=== PATIENT | female | born 2005 | race Two or more races ===

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

== ENCOUNTER 2023-06-11 15:12 | Emergency (ER) | payer MEDICAID ==
[~2023-06-11] VITALS: Ht 160 cm; Wt 47.5 kg
[2023-06-11 16:05] LABS: Basophils # (auto) 0.1 10 ^3/uL (0-0.2); Basophils % (auto) 0.7 % (0.0-2.0); Eosinophils # (auto) 0.3 10 ^3/uL (0-0.8); Eosinophils % (auto) 2.5 % (0.0-7.0); Hematocrit 40.3 % (36.0-46.0); Hemoglobin 13.4 g/dL (12.2-16.2); Lymphocytes # (auto) 2.6 10 ^3/uL (0.4-5.4); Lymphocytes % (auto) 25.1 % (10.0-50.0); Mean Corpuscular Hemoglobin 28.8 pg (28.0-32.0); Mean Corpuscular Hgb Conc. 33.3 g/dL (32.0-36.0); Mean Corpuscular Volume 86.7 fL (80.0-100.0); Monocytes # (auto) 1.2 10 ^3/uL (0-1.3); Monocytes % (auto) 11.5 % (0.0-12.0); Neutrophils # (auto) 6.3 10 ^3/uL (1.6-8.6); Neutrophils % (auto) 60.2 % (37.0-80.0); Red Blood Cells 4.64 10^6/uL (4.0-5.20); Red Cell Distribution Width 13.1 % (11.8-14.3); White Blood Cell 10.4 10^3/uL (4.4-10.8)
[2023-06-11 16:33] LABS: Urine Bacteria MOD /hpf (None Seen); Urine Blood Negative /uL (Negative); Urine Clarity HAZY (Clear); Urine Color Yellow (Yellow); Urine Mucus MODERATE (None Seen); Urine Protein, UAD TRACE (Negative); Urine Urobilinogen Normal (Negative); Urine WBC 1 /hpf (0 - 5)
[2023-06-11 16:43] LABS: Alanine Aminotransferase 10 U/L (7-40); Albumin 4.5 g/dL (3.2-4.8); Alkaline Phosphatase 84 U/L (46-116); Anion Gap 7.6 (5-15); Aspartate Aminotransferase 10 U/L (13-40); BUN/Creatinine Ratio 8.8 (10.0-20.0); Bilirubin, Total 0.4 mg/dL (0.2-1.0); Blood Urea Nitrogen 6 mg/dL (9-23); Calcium 9.3 mg/dL (8.7-10.4); Carbon Dioxide 24.4 mmol/L (20-30); Chloride 109 mmol/L (98-107); Glucose 79 mg/dL (74-106); Potassium 3.8 mmol/L (3.5-5.1); Sodium 141 mmol/L (136-145); Total Protein 7.4 g/dL (5.7-8.2)
[2023-06-11 17:33] LABS: Lipase 43 U/L (12-53)
[2023-06-11 20:00] VITALS: BP 111/77; PULSE 74; RESP 19; TEMP 98; O2SAT 97
[2023-06-11] MEDS ORDERED: HYDR-4902 PO (20:42)
[2023-06-11] MEDS ORDERED: NITR-87 PO (20:42)
[2023-06-11] MEDS ORDERED: ZOFR4T PO (20:42)
[2023-06-11] MEDS ORDERED: HYDROcodone-ACET 5/325MG TAB PO ONE (20:45)
[2023-06-11] MEDS ORDERED: ONDANSETRON ODT 4 MG TAB PO ONE (20:45)
== END 2023-06-11 21:56 | disposition home or self-care (01) ==
LOC: ER 15:12
DX: N39.0 Urinary tract infection, site not specified (principal); R10.2 Pelvic and perineal pain; R11.2 Nausea with vomiting, unspecified
CPT/HCPCS: 36415; 74176; 80053; 81001; 83690; 84702; 85025

== ENCOUNTER 2024-08-21 09:15 | Inpatient (IN) | payer MEDICAID ==
[~2024-08-21] VITALS: Ht 160 cm; Wt 47.6 kg
[~2024-08-21 09:15] MED LIST: HYDR-4902 PO; NITR-87 PO; ZOFR4T PO
--- NOTE | 2024-08-21 09:32 | ED.PDOC ---
GI ASSESSMENT HPI Comments 19y F who presents to the ED for chief complaint of abdominal pain. Pt states she has been having lower pelvic abdominal pain for the past 2 days. Pt states the pain is sharp in nature, constant, rating the pain 10/10, radiating from the R lower flank, with no associated exacerbating or relieving factors. Pt has associated nausea but denies vomiting, diarrhea, fever, cough, chills, dysuria, hematuria or hematemesis. Pt denies any other symptoms at this time. Chief Complaint: Abdominal Pain Time Seen by MD: 09:31 Primary Care Provider: Kevon Reviewed Notes: Medications, Allergies Allergies: Coded Allergies: Iohexol (Verified Allergy, Severe, 08/21/24) Tachycardia Home Meds Active Scripts Hydrocodone-Acetaminophen (Hydrocodone Bitartrate/AC 5-325 mg) 1 Tab Tab, 1 TAB PO Q6HR, #8 TAB As needed for pain Prov:FLACO HERNANDES PASSENGER LOCOMOTIVE ENGINEER 06/11/23 Ondansetron Odt 4MG Tab (ZOFRAN PO) 4 Mg Tb, 1 TAB PO Q8HR, #20 TAB ODT TAB-DISSOLVE IN MOUTH, THEN SWALLOW as needed for nausea vomiting Prov:FLACO HERNANDES PASSENGER LOCOMOTIVE ENGINEER 06/11/23 Nitrofurantoin Monohydrate Mac (Macrobid) 100 Mg Cap, 1 TAB PO BID for 10 Days, #20 CAP Prov:FLACO HERNANDES PASSENGER LOCOMOTIVE ENGINEER 06/11/23 Information Source: Patient Mode of Arrival: Wheelchair Brought in by: self Timing: Days Duration: Since onset Quality: Sharp Pain Location: Diffuse Associated sign and symptoms: Nausea Past Medical History PAST MEDICAL HISTORY: Denies Surgical History: Denies all surgeries MONEY ROOM TELLER History: Denies all MONEY ROOM TELLER Hx Family History Family History: Reviewed,noncontributory to illness Social History Smoker: Non-Smoker Alcohol: Denies ETOH Use Drugs: Denies Drug Use Lives In: Home Constitutional: denies: chills, diaphoresis, fatigue, fever, malaise, sweats, weakness, others EENTM: denies: blurred vision, double vision, ear bleeding, ear discharge, ear drainage, ear pain, ear ringing, eye pain, eye redness, hearing loss, mouth pain, mouth swelling, nasal discharge, nose bleeding, nose congestion, nose pain, photophobia, tearing, throat pain, throat swelling, voice changes, others Respiratory: denies: cough, hemoptysis, orthopnea, SOB at rest, shortness of breath, SOB with excertion, stridor, wheezing, others Cardiovascular: denies: chest pain, dizzy spells, diaphoresis, Dyspnea on exer tion, edema, irregular heart beat, left arm pain, lightheadedness, palpitations, PND, syncope, others Gastrointestinal: reports: abdominal pain, nausea; denies: abdomen distended, blood streaked bowels, constipated, diarrhea, dysphagia, difficulty swallowing, hematemesis, melena, poor appetite, poor fluid intake, rectal bleeding, rectal pain, vomiting, others Genitourinary: denies: abnormal vagina bleeding, burning, dyspareunia, dysuria, flank pain, frequency, hematuria, incontinence, pain, , vagina discharge, urgency, others Neurological: denies: dizziness, fainting, headache, left sided numbness, left sided weakness, numbness, paresthesia, pre-existing deficit, right sided numbness, right sided weakness, seizure, speech problems, tingling, tremors, weakness, others Musculoskeletal: denies: back pain, gout, joint pain, joint swelling, muscle pain, muscle stiffness, neck pain, others Integumetry: denies: bruises, change in color, change in hair/nails, dryness, laceration, lesions, lumps, rash, wounds, others Allergic/Immunocompromised: denies: Difficulty Healing, Frequent Infections, Hives, Itching, others Hematologic/Lymphatic: denies: anemia, blood clots, easy bleeding, easy bruising, swollen glands, others Endocrine: denies: excessive hunger, excessive sweating, excessive thirst, excessive urination, flushing, intolerance to cold, intolerance to heat, unexplained weight gain, unexplained weight loss, others Psychiatric: denies: anxiety, bipolar disorder, depression, hopeless, panic disorder, schizophrenia, sleepless, suicidal, others All Other Systems: Reviewed and Negative Physical Exam General Appearance: Moderate Distress HEENT: Normal ENT Inspection, Pharynx Normal, TMs Normal Neck: Full Range of Motion, Non-Tender, Normal, Normal Inspection Respiratory: Chest Non-Tender, Lungs Clear, No Accessory Muscle Use, No Respiratory Distress, Normal Breath Sounds Cardiovascular: Tachycardia Breast Exam: Deferred Gastrointestinal: Suprapubic Genitalia: Deferred Pelvic: Deferred Rectal: Deferred Extremities: No calf tenderness, Normal capillary refill, Normal inspection, Normal range of motion, Non-tender, No pedal edema Musculoskeletal : Apperance: Normal Neurologic: Alert, alodize machine operator II-XII nml as Tested, No Motor Deficits, Normal Affect, Normal Mood, No Sensory Deficits Cerebellar Function: NOT DONE Reflexes: NOT DONE Skin: Dry, Normal Color, Warm Peripheral Pulses: 3+ Radial (R), 3+ Radial (L) Lymphatic: No Adenopathy Was a procedure done? Was a procedure done?: No GI differential Dx Differential Diagnosis: Cholangitis, Cholecystitis, Constipation, Diverticular disease, Esophagitis, Gastritis/PUD, Gastroenteritis, Pancreatitis, UTI, Food Poisoning, Bacterial, Viral, Kidney Stone X-Ray, Labs, Meds, VS Vital Signs Date Time Temp Pulse Resp B/P (MAP) Pulse Ox O2 Delivery O2 Flow Rate FiO2 08/21/24 12:00 100 19 92/49 (63) 96 08/21/24 11:03 99 19 97 Room Air* 0 21 08/21/24 10:00 99.2 99 19 93/55 (68) 97 99.2 08/21/24 09:17 98.7 146 18 145/87 (106) 97 Lab Test 08/21/24 09:33 Range/Units White Blood Count 15.0 H 4.4-10.8 10^3/uL Red Blood Count 4.82 4.0-5.20 10^6/uL Hemoglobin 14.3 12.2-16.2 g/dL Hematocrit 42.4 36.0-46.0 % Mean Corpuscular Volume 88.1 80.0-100.0 fL Mean Corpuscular Hemoglobin 29.7 28.0-32.0 pg Mean Corpuscular Hemoglobin Concent 33.7 32.0-36.0 g/dL Red Cell Distribution Width 12.2 11.8-14.3 % Platelet Count 371 140-450 10^3/uL Mean Platelet Volume 6.7 L 6.9-10.8 fL Neutrophils (%) (Auto) 76.1 37.0-80.0 % Lymphocytes (%) (Auto) 14.3 10.0-50.0 % Monocytes (%) (Auto) 9.0 0.0-12.0 % Eosinophils (%) (Auto) 0.2 0.0-7.0 % Basophils (%) (Auto) 0.4 0.0-2.0 % Neutrophils # (Auto) 11.4 H 1.6-8.6 10 ^3/uL Lymphocytes # (Auto) 2.1 0.4-5.4 10 ^3/uL Monocytes # (Auto) 1.4 H 0-1.3 10 ^3/uL Eosinophils # (Auto) 0 0-0.8 10 ^3/uL Basophils # (Auto) 0.1 0-0.2 10 ^3/uL Nucleated Red Blood Cells 0.1 % Sodium Level 137 136-145 mmol/L Potassium Level 3.6 3.5-5.1 mmol/L Chloride Level 103 98-107 mmol/L Carbon Dioxide Level 26 20-31 mmol/L Anion Gap 8 5-15 Blood Urea Nitrogen 8 L 9-23 mg/dL Creatinine 0.72 0.550-1.02 mg/dL Glomerular Filtration Rate Calc 122 >90 mL/min BUN/Creatinine Ratio 11.1 10.0-20.0 Serum Glucose 87 74-106 mg/dL Calcium Level 9.8 8.7-10.4 mg/dL Current Medications Medications (Trade) Dose Ordered Sig/Emilio Route Start Time Stop Time Status Last Admin Ondansetron HCl (Zofran) 4 mg ONCE ONCE IV 08/21/24 09:45 08/21/24 09:46 DC 08/21/24 10:27 Sodium Chloride 1,000 ml @ 1,000 mls/hr Q1H ONCE IVB 08/21/24 09:45 08/21/24 10:45 DC 08/21/24 10:29 Ketorolac Tromethamine (Toradol Injection) 30 mg ONCE ONCE IV 08/21/24 09:45 08/21/24 09:46 DC 08/21/24 10:27 PROCEDURE(s): ABPL - CT AB PEL WO CON-NO ORAL OR IV IMPRESSION: 1. Suspected appendix appears dilated. If there is concern for appendicitis, recommend repeat CT of the abdomen and pelvis with contrast to better evaluate this area. No hydronephrosis or nephrolithiasis. Patient alert. Complaining of suprapubic pain. Vitals stable. Answering all questions. Possible kidney stone. Establish intravenous access. Was given fluids. Was given pain medication. Tachycardia. Will need echocardiogram. Possible mitral valve disease. Reviewed her history. Explained to the patient treatment plan. Time of 1ST Reevaluation: 10:00 Reevaluation 1ST: Unchanged Patient Education/Counseling: Diagnosis, Treatment Family Education/Counseling: No Family Present Departure 1 Departure Time of Disposition: 10:51 Impression: Primary Impression: Abdominal pain of unknown etiology Additional Impression: Tachycardia Disposition: ADMITTED INPATIENT Admit to: Med Surg Condition: Guarded Critical Care Note Critical Care Time?: Yes (45 min-critical care time only) Stability Stability form required: No Heart Score Heart Score: Heart Score Response (Comments) Value History N/A 0 EKG N/A 0 Age N/A 0 Risk Factors N/A 0 Troponin N/A 0 Total 0 I personally scribed for MARTÍN MAYS MD ([email or web address]) on 08/21/24 at 09:32. Electronically submitted by Patt Rollins ([email or web address]). I personally scribed for MARTÍN MAYS MD ([email or web address]) on 08/21/24 at 14:30. Electronically submitted by Patt Rollins ([email or web address]). MARTÍN MAYS MD Aug 21, 2024 09:32
[2024-08-21 10:00] LABS: Basophils # (auto) 0.1 10 ^3/uL (0-0.2); Basophils % (auto) 0.4 % (0.0-2.0); Eosinophils # (auto) 0 10 ^3/uL (0-0.8); Eosinophils % (auto) 0.2 % (0.0-7.0); Hematocrit 42.4 % (36.0-46.0); Hemoglobin 14.3 g/dL (12.2-16.2); Lymphocytes # (auto) 2.1 10 ^3/uL (0.4-5.4); Lymphocytes % (auto) 14.3 % (10.0-50.0); Mean Corpuscular Hemoglobin 29.7 pg (28.0-32.0); Mean Corpuscular Hgb Conc. 33.7 g/dL (32.0-36.0); Mean Corpuscular Volume 88.1 fL (80.0-100.0); Monocytes # (auto) 1.4 10 ^3/uL (0-1.3); Neutrophils # (auto) 11.4 10 ^3/uL (1.6-8.6); Neutrophils % (auto) 76.1 % (37.0-80.0); Nucleated Red Blood Cells % 0.1 %; Platelet Count (auto) 371 10^3/uL (140-450); Red Blood Cells 4.82 10^6/uL (4.0-5.20); Red Cell Distribution Width 12.2 % (11.8-14.3)
[2024-08-21 10:12] LABS: Chloride 103 mmol/L (98-107); Potassium 3.6 mmol/L (3.5-5.1); Sodium 137 mmol/L (136-145)
[2024-08-21 10:13] LABS: Anion Gap 8 (5-15); Calcium 9.8 mg/dL (8.7-10.4); Carbon Dioxide 26 mmol/L (20-31)
[2024-08-21 10:18] LABS: BUN/Creatinine Ratio 11.1 (10.0-20.0); Blood Urea Nitrogen 8 mg/dL (9-23); Glucose 87 mg/dL (74-106)
[2024-08-21] MEDS: KETOROLAC TROMETH 30 MG/ML 1ML VIAL IV ONE (10:27)
[2024-08-21] MEDS: ONDANSETRON HCL 4 MG/2 ML VIAL IV ONE (10:27)
[2024-08-21] MEDS: SODIUM CHLORIDE 0.9% 1,000 ML IVB ONE (10:29)
[2024-08-21 11:03] VITALS: PULSE 99; RESP 19; O2SAT 97
--- NOTE | 2024-08-21 11:35 | DVH ---
Exam: CT CT AB PEL WO CON-NO ORAL OR IV History: stone Comparison Study: CT CT AB PEL WO CON-NO ORAL OR IV on DOS: 06/11/23 Technique: Multidetector spiral CT of the abdomen and pelvis was performed from lung bases to pubic symphysis. Imaging was performed without IV contrast. Axial, coronal and sagittal multiplanar reform ats were obtained from the axial data set by the technologist. Radiation dose : Abdomen/Pelvis: CTDIvol 5 mGy, DLP 257 mGy*cm. Findings: Evaluation of solid organs is limited due to lack of intravenous contrast use. Lung Bases: No acute or significant lung base finding. Normal heart size. No pleural or pericardial effusion. Liver: The liver is normal in size. No focal lesions. Gallbladder and biliary Tree: Unremarkable Spleen: Unremarkable Pancreas: The pancreas is grossly normal in appearance. Adrenal Glands: Unremarkable Kidneys: Kidneys are grossly normal without calculi or hydronephrosis. Bladder: Grossly unremarkable for degree of distention. Bowel: The stomach is grossly normal in appearance. Small bowel and colon are normal in caliber and d istribution. Suspected appendix appears dilated measuring up to 12 mm Ascites: Trace free fluid in the pelvis. Lymphadenopathy: No mesenteric, retroperitoneal or periportal lymphadenopathy. Abdominal wall and Mesentery: Unremarkable. Vasculature: The visualized abdominal aorta is normal in size and caliber. Evaluation of abdominal a nd pelvic vessels is limited due to lack of intravenous contrast. Pelvic Organs: Unremarkable Musculoskeletal: No aggressive focal bony lesions, acute fractures or dislocation. IMPRESSION: 1. Suspected appendix appears dilated. If there is concern for appendicitis, recommend repeat CT of t he abdomen and pelvis with contrast to better evaluate this area. No hydronephrosis or nephrolithiasi s. Radiation optimization: All CT scans at this facility use at least one of these dose optimization augustin hniques: Automated exposure control mA and/or kV adjustment per patient size (includes targeted exams where dose is matched to clinical indication) or iterative reconstruction. HS:Y
[2024-08-21] MEDS ORDERED: MORPHINE SULFATE INJ 2 MG/ml SYRG IV PRN (13:15)
[2024-08-21] MEDS: IOHEXOL 300 MG/ML 100ML BOTTLE IJ ONE (13:24)
--- NOTE | 2024-08-21 13:53 | DVHHP2 ---
History of Present Illness Reason for Visit: Abdominal pain History of Present Illness 19-year-old female presented to the ED with chief complaint of abdominal pain. Patient states she was having lower abdominal pain for the last 2 days. Per the patient pain is sharp, constant and 10/10 radiating from the right lower flank, patient also states she had nausea but denies vomiting. CT abdomen and pelvis without contrast shows possible dilation of the appendix, CT abdomen/pelvis with contrast ordered and pending. Antibiotics started. We will place surgical consult to eval.Patient denies chest pain, headache, dizziness, diaphoresis, shortness of breath, fever, or chills endorsed by the patient. Patient was admitted for further evaluation medical management. Past Medical History Denies Past Surgical History Denies Family History Reviewed noncontributory to the management of this case Smoke: No ALCOHOL: none Drugs: None Lives: with Family Review of Systems Constitutional: No: Fever, Chills, Sweats, Weakness, Malaise, Other Eyes: No: Pain, Vision change, Conjunctivae inflammation, Eyelid inflammation, Other, Redness ENT: No: Ear pain, Ear discharge, Nose pain, Nose discharge, Nose congestion, Mouth pain, Mouth swelling, Throat pain, Throat swelling, Other Respiratory: No: Cough, Dry, Shortness of breath, SOB with excertion, Wheezing, Hemoptysis, Pleuritic Pain, Sputum, Wheezing, Other Cardiovascular: No: Chest Pain, Palpitations, Orthopnea, Paroxysmal Noc. Dyspnea, Edema, Lt Headedness, Other Gastrointestinal: Nausea, Abdominal Pain; No: Vomiting, Diarrhea, Constipation, Melena, Hematochezia, Other Genitourinary: No Dysuria, No Frequency, No Incontinence, No Hematuria, No Retention, No Other Musculoskeletal: No: other, neck pain, shoulder pain, arm pain, back pain, hand pain, leg pain, foot pain Skin: No: Rash, Lesions, Jaundice, Bruising, Other Neurological: No: Weakness, Numbness, Incoordination, Change in speech, Co nfusion, Seizures, Other Allergies: Coded Allergies: NO KNOWN ALLERGIES (Unverified , 07/03/19) Medications Current Medications Medications Dose Ordered Sig/Emilio Route Start Time Stop Time Status Last Admin Dose Admin Ondansetron HCl 4 mg Q4HP PRN IV 08/21/24 13:15 Morphine Sulfate 2 mg Q4HPRN PRN IV 08/21/24 13:15 Piperacillin Sod/ Tazobactam Sod 100 ml @ 25 mls/hr Q6HR IV 08/21/24 18:00 UNV Exam Vital Signs Vital Signs Date Time Temp Pulse Resp B/P (MAP) Pulse Ox O2 Delivery O2 Flow Rate FiO2 08/21/24 12:00 100 19 92/49 (63) 96 08/21/24 11:03 Room Air* 0 21 08/21/24 10:00 99.2 99.2 General Appearance: Alert, Oriented X3, Cooperative, No acute distress HEENT: Atraumatic, PERRLA, EOMI, Mucous membr. moist/pink Respiratory: Clear to auscultation, Normal air movement Cardiovascular: Regular rate, Normal S1, Normal S2, No murmurs Abdominal: Normal bowel sounds, Soft, No hepatospenomegaly, No masses, Other (Some deep tenderness to right lower quadrant, no rebound tenderness) Extremities: No clubbing, No cyanosis, No edema, Normal pulses, No tender ness/swelling Skin: No rashes, No breakdown, No significant lesion Neuro: Normal gait, Normal speech, Strength at 5/5 X4 ext, Normal tone, Sensation intact, Cranial nerves 3-12 NL, Reflexes 2+ Psych/Mental Status: Mental status NL, Mood NL (Tachycardic, which patient states is her baseline) Labs/Xrays Labs, imaging and ED notes reviewed Labs Test 08/21/24 09:33 Range/Units White Blood Count 15.0 H 4.4-10.8 10^3/uL Red Blood Count 4.82 4.0-5.20 10^6/uL Hemoglobin 14.3 12.2-16.2 g/dL Hematocrit 42.4 36.0-46.0 % Mean Corpuscular Volume 88.1 80.0-100.0 fL Mean Corpuscular Hemoglobin 29.7 28.0-32.0 pg Mean Corpuscular Hemoglobin Concent 33.7 32.0-36.0 g/dL Red Cell Distribution Width 12.2 11.8-14.3 % Platelet Count 371 140-450 10^3/uL Mean Platelet Volume 6.7 L 6.9-10.8 fL Neutrophils (%) (Auto) 76.1 37.0-80.0 % Lymphocytes (%) (Auto) 14.3 10.0-50.0 % Monocytes (%) (Auto) 9.0 0.0-12.0 % Eosinophils (%) (Auto) 0.2 0.0-7.0 % Basophils (%) (Auto) 0.4 0.0-2.0 % Neutrophils # (Auto) 11.4 H 1.6-8.6 10 ^3/uL Lymphocytes # (Auto) 2.1 0.4-5.4 10 ^3/uL Monocytes # (Auto) 1.4 H 0-1.3 10 ^3/uL Eosinophils # (Auto) 0 0-0.8 10 ^3/uL Basophils # (Auto) 0.1 0-0.2 10 ^3/uL Nucleated Red Blood Cells 0.1 % Sodium Level 137 136-145 mmol/L Potassium Level 3.6 3.5-5.1 mmol/L Chloride Level 103 98-107 mmol/L Carbon Dioxide Level 26 20-31 mmol/L Anion Gap 8 5-15 Blood Urea Nitrogen 8 L 9-23 mg/dL Creatinine 0.72 0.550-1.02 mg/dL Glomerular Filtration Rate Calc 122 >90 mL/min BUN/Creatinine Ratio 11.1 10.0-20.0 Serum Glucose 87 74-106 mg/dL Calcium Level 9.8 8.7-10.4 mg/dL Assessment/Plan Assessment/Plan Acute appendicitis Admit to medical/surgical WBCs and neutrophils elevated Patient is tachycardic patient states she has tachycardia baseline May consider Cardiology consult Consult surgery Zosyn started IV fluids NPO for now until surgical clears FEN/PPX GI prophylaxis in VTE prophylaxis not indicated NPO IV fluids Plan discussed with: Patient My Orders Orders - SHANTELLE EWING Procedure Category Date Status Time Ct Ab Pel With Iv Con CT 08/21/24 Taken Only 13:04 Admit ADMIT 08/21/24 Transmitted 13:07 Code Status CODE 08/21/24 Transmitted 13:07 Vital Signs [facility] 08/21/24 In Process 13:07 Review Orders With [facility] 08/21/24 In Process Adm. 13:07 Up Ad Erinn [facility] 08/21/24 In Process 13:07 Npo (Nothing By DIET 08/21/24 Transmitted Mouth) Diet Lunch Notify Of Changes [facility] 08/21/24 In Process From Base 13:07 Advance Directive [facility] 08/21/24 In Process 13:07 Basic Metabolic Panel LAB 08/22/24 Verified 04:00 Complete Blood Count LAB 08/22/24 Verified 04:00 Patient Condition ORDERS 08/21/24 Transmitted 13:07 Allergies ARACELIS 08/21/24 In Process 13:07 Ondansetron Hcl PHA 08/21/24 In Process (Zofran) 13:15 Morphine Sulfate PHA 08/21/24 In Process Injection 13:15 Piperacillin-Tazob PHA 08/21/24 Logged 3.375gm (Zosyn 3.375g 18:00 Piperacillin-Tazob PHA 08/21/24 In Process 3.375gm (Zosyn 3.375g 13:30 Date of Service: Aug 21, 2024 Billing Provider: SHANTELLE EWING Common Visit Codes: [id number] INP/OBS CARE (HIGH) SHANTELLE EWING Aug 21, 2024 13:53
--- NOTE | 2024-08-21 13:53 | DVH ---
Exam: CT CT AB PEL WITH IV CON ONLY History: Dilated appendix Comparison Study: TECHNIQUE: A digital systems librarian image was obtained. During the uneventful, intravenous administration of c ontrast material, multislice data acquisition was obtained through the abdomen and pelvis. The data s et was subsequently reconstructed into axial images. Images were reviewed on a work station using a c ombination of axial and multiplanar using a variety of window levels and settings. 100 cc of Omnipaqu e 300 contrast was injected intravenously. All CT scans at this medical facility are performed using dose modulation techniques as appropriate t o a performed exam including the following:Automated exposure control was utilized; adjustment of the MA and/or KV according to patient size; and use of iterative reconstruction technique. Radiation Dose Information: CT Dose: CTDI volume is 5.4 mGy. Dose-length product is 270.69 mGy*cm Comparison: CT CT AB PEL WO CON-NO ORAL OR IV on DOS: 08/21/24, CT CT AB PEL WO CON-NO ORAL OR IV on D OS: 06/11/23 FINDINGS: There is redemonstration of a dilated appendix measuring 1.3 cm in diameter. There is hypodense rakesh nts within the appendix. There is no significant periappendiceal fat stranding or fluid collection. T here is no free air. Theliver, gallbladder, pancreas, kidneys, adrenal glands, and spleen appear within normal limits. There is no evidence of abdominal lymphadenopathy. There is no free fluid or free air. The stomach grossly appears unremarkable. The small and large bowel loops demonstrate normal caliber. Air intermixed with stool is seen throughout the colon. The abdominal aorta and IVC appear within normal limits. The bladder appears within normal limits the degree of distention. Pelvic organs is unremarkable. The re is no evidence of a pelvic mass or lymphadenopathy. There is free fluid in the posterior cul-de-s ac, likely physiologic. Lung bases are clear. There is no acute osseous abnormality. IMPRESSION: 1. Dilated appendix measuring 1.3 cm in diameter. There is hypodense contents within the appendix. Th ere is no significant periappendiceal fat stranding or fluid collection. There is no free air. Clinic al correlation is recommended to exclude acute appendicitis. Mucocele in the appendix is not excluded . Surgical consultation is recommended. HS:Y
[2024-08-21] MEDS: diphenhdrAMINE HCL 50 MG/1 ML VL IV ONE (14:07)
[2024-08-21] MEDS: PIPERACILLIN-TAZOB 3.375GM 100 ML IV ONE (14:18)
--- NOTE | 2024-08-21 15:11 | DVHINCON2 ---
Date of service: Aug 21, 2024 Reason for Consultation appendicitis History of Present Illness History Source: Patient, Family, MD Notes Exam Limitations: No limitations HPI 19 year old female presented to the ER for evaluation of abdominal pain. The patient states the pain has been present for the past two days and progressively worse and now pain is sharp 10/10 to her lower abdomen and right lower quadrant associated with nausea. Denies vomiting Home Meds Active Scripts Hydrocodone-Acetaminophen (Hydrocodone Bitartrate/AC 5-325 mg) 1 Tab Tab, 1 TAB PO Q6HR, #8 TAB As needed for pain Prov:FLACO HERNANDES Q [employer] SALES [employer]ANT 06/11/23 Ondansetron Odt 4MG Tab (ZOFRAN PO) 4 Mg Tb, 1 TAB PO Q8HR, #20 TAB ODT TAB-DISSOLVE IN MOUTH, THEN SWALLOW as needed for nausea vomiting Prov:FLACO HERNANDES Q S[employer]IOR SALES CONSULTANT 06/11/23 Nitrofurantoin Monohydrate Mac (Macrobid) 100 Mg Cap, 1 TAB PO BID for 10 Days, #20 CAP Prov:CECILIOJOEMoe Q SENIOR SALES CONSULTANT 06/11/23 Chief Complaint of Abdominal/F: Abdominal pain Onset/Duration of Abd/Flank Pa: 24 hours Quality of Abd/Flank Pain: Sharpness Location of Abdominal Onset: RLQ Timing of Abdominal Pain: Still present Past Medical History Cardiac: No pertinent Hx Pulmonary: No pertinent Hx Central Nervous System: No pertinent Hx GI: No pertinent Hx Hemotology/Oncology: No pertinent Hx Hepatobiliary: No pertinent Hx Psychiatric: No pertinent Hx Musculoskeletal: No pertinent Hx Rheumotologic: No pertinent Hx Infectious Disease: No peritnent Hx ENT: No pertinent Hx Renal/: No pertinent Hx Endocrine: No pertinent Hx Dermatology: No pertinent Hx Past Surgical History: No pertinent Hx Family History: No pertinent Hx Smoker: No Hx (Negative) Alocohol: None Drugs: None Lives with: With family Review of Systems Constitutional: No symptom reported Ears, Nose, & Throat: No symptom reported Eyes: No symptom reported Pulmonary/Respiratory: No symptom reported Cardiovascular: No symptom reported Gastrointestinal: Abdominal Pain Genitourinary: No symptom reported Musculoskeletal: No symptom reported Skin: No symptom reported Psychiatric: No symptom reported Endocrine: No symptom reported Hemotologic/Lymphatic: No symptom reported H&P Exam Vital Signs Vital Signs Date Time Temp Pulse Resp B/P (MAP) Pulse Ox O2 Delivery O2 Flow Rate FiO2 08/21/24 14:00 123 19 100/60 (73) 100 08/21/24 11:03 Room Air* 0 21 08/21/24 10:00 99.2 99.2 General Appeara: Well developed, Well nourished, Normal Appearance Head Exam: Normal inspection Neck Exam: Normal inspection, Non-tender, Normal alignment Eye Exam: bilateral eye Normal inspection Nasal Exam: Normal inspection Mouth: Normal Inspection Pulmonary/Respiratory: Normal inspection, Normal breath sounds Cardiovascular/Chest: Normal inspection Abdominal Exam: Normal bowel sounds Abdominal Pain Onset Location: RLQ, Periumbilical Tendon/ Neuro: Normal sensation, Normal motor function [employer] T[employer] Exam: Normal hearing, Normal speech, PERRL Neuro/Mental St: Alert, Oriented Appearance: Appropriate appearance Eye contact/ Speech: Cooperative, Good eye contact, Normal speech Skin Exam: Normal inspection, Normal color, Warm/dry Labs/Xrays Labs Test 08/21/24 09:33 Range/Units White Blood Count 15.0 H 4.4-10.8 10^3/uL Red Blood Count 4.82 4.0-5.20 10^6/uL Hemoglobin 14.3 12.2-16.2 g/dL Hematocrit 42.4 36.0-46.0 % Mean Corpuscular Volume 88.1 80.0-100.0 fL Mean Corpuscular Hemoglobin 29.7 28.0-32.0 pg Mean Corpuscular Hemoglobin Concent 33.7 32.0-36.0 g/dL Red Cell Distribution Width 12.2 11.8-14.3 % Platelet Count 371 140-450 10^3/uL Mean Platelet Volume 6.7 L 6.9-10.8 fL Neutrophils (%) (Auto) 76.1 37.0-80.0 % Lymphocytes (%) (Auto) 14.3 10.0-50.0 % Monocytes (%) (Auto) 9.0 0.0-12.0 % Eosinophils (%) (Auto) 0.2 0.0-7.0 % Basophils (%) (Auto) 0.4 0.0-2.0 % Neutrophils # (Auto) 11.4 H 1.6-8.6 10 ^3/uL Lymphocytes # (Auto) 2.1 0.4-5.4 10 ^3/uL Monocytes # (Auto) 1.4 H 0-1.3 10 ^3/uL Eosinophils # (Auto) 0 0-0.8 10 ^3/uL Basophils # (Auto) 0.1 0-0.2 10 ^3/uL Nucleated Red Blood Cells 0.1 % Sodium Level 137 136-145 mmol/L Potassium Level 3.6 3.5-5.1 mmol/L Chloride Level 103 98-107 mmol/L Carbon Dioxide Level 26 20-31 mmol/L Anion Gap 8 5-15 Blood Urea Nitrogen 8 L 9-23 mg/dL Creatinine 0.72 0.550-1.02 mg/dL Glomerular Filtration Rate Calc 122 >90 mL/min BUN/Creatinine Ratio 11.1 10.0-20.0 Serum Glucose 87 74-106 mg/dL Calcium Level 9.8 8.7-10.4 mg/dL Assessment/Plan Plan patient states she had a similar episode about one year ago and lasted for a few days and got better. Patient states pain started two days ago and progressively became worse. On exam patient tender to right lower quadrant. review of CT dilated appendix , case discussed with Dr. Angulo and agrees with the following plan Laparoscopic possibly open appendectomy tomorrow morning Plan discussed with: Patient, Other (Dr. Angulo ) Visit Coding Surgery Date of Service if different f: Aug 21, 2024 Billing Provider: RIAN ANGULO MD Surgery Visit Codes: 63975 - INP CONSULT <80 MIN JESUS MANUEL TAFOYA NP Aug 21, 2024 15:11
[2024-08-21] MEDS: D5W/SOD CHL 0.45%/KCL 20MEQ 1,000 ML IV SCH (15:13)
[2024-08-21 16:13] VITALS: BP 107/66; PULSE 91; RESP 20; TEMP 98.1; O2SAT 97
[2024-08-21 17:00] VITALS: BP 96/62; PULSE 92; RESP 17; TEMP 98.5; O2SAT 100
[2024-08-21] MEDS ORDERED: TRAZ1TAB12 PO (17:30)
[2024-08-21] MEDS ORDERED: VENL150C3 PO (17:31)
[2024-08-21 19:16] LABS: INR 1.11 (0.9-1.15); Partial Thromboplastin Time 29.4 SEC (24.5-34.5); Prothrombin Time 11.7 sec (9.3-11.8)
[2024-08-21 20:00] VITALS: PULSE 95; RESP 18; O2SAT 98
[2024-08-21 21:00] VITALS: BP 104/69; PULSE 95; RESP 18; TEMP 98.4; O2SAT 98
[2024-08-21] MEDS: PIPERACILLIN-TAZOB 3.375GM 100 ML IV SCH (21:51)
[2024-08-22] VITALS (8 sets, daily range): BP systolic 93–106; BP diastolic 55–64; PULSE 69–96; RESP 16–20; TEMP 97.8–98.4; O2SAT 96–100
[2024-08-22 06:24] LABS: Basophils # (auto) 0.1 10 ^3/uL (0-0.2); Basophils % (auto) 0.8 % (0.0-2.0); Eosinophils # (auto) 0.1 10 ^3/uL (0-0.8); Eosinophils % (auto) 1.7 % (0.0-7.0); Hematocrit 39.7 % (36.0-46.0); Hemoglobin 13.3 g/dL (12.2-16.2); Lymphocytes # (auto) 2.5 10 ^3/uL (0.4-5.4); Lymphocytes % (auto) 36.3 % (10.0-50.0); Mean Corpuscular Hemoglobin 29.6 pg (28.0-32.0); Mean Corpuscular Hgb Conc. 33.5 g/dL (32.0-36.0); Mean Corpuscular Volume 88.3 fL (80.0-100.0); Monocytes # (auto) 0.7 10 ^3/uL (0-1.3); Monocytes % (auto) 10.8 % (0.0-12.0); Neutrophils # (auto) 3.4 10 ^3/uL (1.6-8.6); Neutrophils % (auto) 50.4 % (37.0-80.0); Platelet Count (auto) 310 10^3/uL (140-450); Red Cell Distribution Width 12.6 % (11.8-14.3); White Blood Cell 6.8 10^3/uL (4.4-10.8)
[2024-08-22 06:32] LABS: Chloride 108 mmol/L (98-107); Potassium 3.6 mmol/L (3.5-5.1); Sodium 140 mmol/L (136-145)
[2024-08-22 06:33] LABS: Anion Gap 7 (5-15); Carbon Dioxide 25 mmol/L (20-31)
[2024-08-22 06:38] LABS: Glucose 89 mg/dL (74-106)
[2024-08-22 06:39] LABS: BUN/Creatinine Ratio 8.7 (10.0-20.0); Blood Urea Nitrogen 6 mg/dL (9-23)
--- NOTE | 2024-08-22 08:55 | DVHPN2 ---
Progress Note - Surgical Date Seen: Aug 22, 2024 Post op day Post op day: 0 Subjective Review of Systems: HEENT:Normal, CVS:Normal, RESPIRATORY:Normal, GI:Abnormal (ABDOMINAL PAIN ), MSK:Normal, NEURO:Normal Objective Vital signs Vital Sign Date Time Temp Pulse Resp B/P (MAP) Pulse Ox O2 Delivery O2 Flow Rate FiO2 08/22/24 07:30 Room Air* 0 21 08/22/24 05:00 98.4 85 16 95/57 (70) 99 98.4 Total Intake and Output 08/21/24 08/21/24 08/22/24 15:00 23:00 07:00 Intake Total 1000 ml 200 ml 800 ml Output Total 0 ml Balance 1000 ml 200 ml 800 ml Medications Current Medications Medications Dose Ordered Sig/Emilio Route Start Time Stop Time Status Last Admin Dose Admin Ondansetron HCl 4 mg Q4HP PRN IV 08/21/24 13:15 Morphine Sulfate 2 mg Q4HPRN PRN IV 08/21/24 13:15 Piperacillin Sod/ Tazobactam Sod 100 ml @ 25 mls/hr Q8HR IV 08/21/24 22:00 08/22/24 05:59 25 MLS/HR Potassium Chloride/Dextrose/ Sod Cl 1,000 ml @ 100 mls/hr Q10H IV 08/21/24 15:00 08/21/24 15:13 100 MLS/HR Laboratory Laboratory Tests 08/22/24 04:54 Test 08/22/24 04:54 Range/Units Serum Glucose 89 74-106 mg/dL Examination: GENERAL:Normal, HEENT:Normal, NECK:Normal, LUNGS:Normal, CVS:Normal, ABDOMEN:Abnormal (Right lower quadrant pain ), MSK:Normal, SKIN:Normal, NEURO:Normal Problem List/Assessment/Plan Assessment and Plan pain right lower quadrant tender to right lower quadrant Laparoscopic possibly open appendectomy Dr. Gonzalez explained all risks and complications in detail to patient all questions answered and patient would like to proceed with operation My Orders My Orders Orders - JESUS MANUEL TAFOYA CYCLE TOURING GUIDE Procedure Category Date Status Time Npo (Nothing By DIET 08/21/24 Transmitted Mouth) Diet Dinner Obtain Consent For: ORDERS 08/21/24 Transmitted 14:57 D5w/Sod Chl 0.45%/Kcl PHA 08/21/24 In Process 20meq 15:00 Plan discussed with Plan discussed with: Patient Visit Coding Surgery Date of Service if different f: Aug 22, 2024 Billing Provider: RIAN GONZALEZ MD Surgery Visit Codes: 86224 - INP CONSULT <80 MIN JESUS MANUEL TAFOYA NP Aug 22, 2024 08:55
--- NOTE | 2024-08-22 09:37 | DVHPN2 ---
Subjective Now complaining of surgical wounds pain Reviewed: Care Plan, H&P, Labs, Medications, Previous Orders, Radiology, Other (Consultation) Changes from previous H/P or p: Changes Objective Vitals Vital Signs Date Time Temp Pulse Resp B/P (MAP) Pulse Ox O2 Delivery O2 Flow Rate FiO2 08/22/24 07:30 Room Air* 0 21 08/22/24 05:00 98.4 85 16 95/57 (70) 99 98.4 Intake/Output Intake and Output 08/22/24 07:00 Intake Total 2000 ml Output Total 0 ml Balance 2000 ml Intake Oral 0 ml IV Total 2000 ml Output Urine Total 0 ml Exam Female nurse was a color television console monitor General Appearance: Alert, Oriented X3, Cooperative, No acute distress, Other (Cachectic) HEENT: Atraumatic Lungs: Clear to auscultation, Normal air movement Cardiovascular: Regular rate, Normal S1, Normal S2, No murmurs Abdomen: Soft, Other (Clean surgical wounds dressing; hoypoactive bowel sounds; mild tenderness) Extremities: No edema Neuro: Normal speech, Cranial nerves 3-12 NL Psych/Mental Status: Mental status NL, Mood NL Medications Current Medications Medications Dose Ordered Sig/Emilio Route Start Time Stop Time Status Last Admin Dose Admin Ondansetron HCl 4 mg Q4HP PRN IV 08/21/24 13:15 Morphine Sulfate 2 mg Q4HPRN PRN IV 08/21/24 13:15 Piperacillin Sod/ Tazobactam Sod 100 ml @ 25 mls/hr Q8HR IV 08/21/24 22:00 08/22/24 05:59 25 MLS/HR Potassium Chloride/Dextrose/ Sod Cl 1,000 ml @ 100 mls/hr Q10H IV 08/21/24 15:00 08/21/24 15:13 100 MLS/HR Laboratory Results Laboratory Tests 08/22/24 04:54 Chemistry Test 08/22/24 04:54 Calcium Level 9.0 mg/dL (8.7-10.4) Coagulation Test 08/21/24 18:18 Prothrombin Time 11.7 sec (9.3-11.8) Prothrombin Time INR 1.11 (0.9-1.15) Activated Partial Thromboplast Time 29.4 SEC (24.5-34.5) Labs and/or images reviewed: Labs reviewed by me, Image(s) reviewed by me Assessment/Plan Assessment/Plan A 19-year-old female patient; with anxiety and depression; who presented to the emergency department abdominal pain. #Abdominal pain due to acute appendicitis #Sepsis due to acute appendicitis #Borderline blood pressure due to sepsis #Leukocytosis due to sepsis #Acute appendicitis status post laparoscopic appendectomy August 22, 2024 Ordered bolus IV fluids Continue regular IV fluids Continue pain management as indicated Continue IV antibiotics Advanced diet as tolerated per surgery recommendations Surgery is following Continue monitoring #Anxiety and depression No suicide ideation/plan Resumed home psychiatric medications #Malnutrition Encouraged the patient to increase oral intake Continue monitoring Care discussed for 20 minutes; full code Late Entry This medical document was created using an electronic medical record system with computerized dictation system. Although this document has been carefully reviewed, there might still be some phonetic and typographical errors. These areas are purely typographical due to imperfections of the software programs, and do not reflect any compromise in the patient's medical care. Plan discussed with: Patient, Other (Nurse) Date of Service: Aug 22, 2024 Billing Provider: CLINTON VARGHESE MD Common Visit Codes: [id number] INP/OBS CARE(HIGH) Secondary Visit Codes: [id number] CARE PLAN 30 MINUTES (20 minutes) CLINTON VARGHESE MD Aug 22, 2024 09:37
[2024-08-22] MEDS ORDERED: fentaNYL CITRATE 100 MCG/2 ML VL ONE (10:19)
[2024-08-22] MEDS ORDERED: MEPERIDINE HCL (25 MG/ML) 1ML VIAL ONE (10:19)
[2024-08-22] MEDS ORDERED: MIDAZOLAM HCL 2MG/2ML 2ml VIAL (1mg/ml) ONE (10:19)
[2024-08-22] MEDS: ceFAZolin 1GM/50ML 100 ML IV ONE (10:32)
[2024-08-22] MEDS: BUPIVACAINE HCL 0.25% P/F 10 ML VIAL ONE (10:40)
[2024-08-22] MEDS: LIDOCAINE 2% JELLY 11ml (GLYDO) ONE (10:44)
[2024-08-22] MEDS ORDERED: LIDOCAINE W/ EPINEPHRINE 1% 20ML VIAL ONE (10:49)
[2024-08-22] MEDS ORDERED: ONDANSETRON HCL 4 MG/2 ML VIAL ONE (11:13)
[2024-08-22] MEDS ORDERED: PROPOFOL 10 MG/ML 20 ML IV ONE (11:13)
[2024-08-22] MEDS ORDERED: DexAMETHasone SOD PHOS 10MG/1ML VIAL INJ ONE (11:13)
[2024-08-22] MEDS ORDERED: SUGAMMADEX 200mg/2ml Vial (100MG/ML) IV ONE (11:26)
[2024-08-22] MEDS: HYDROcodone-ACET 10/325MG TAB PO PRN (14:47)
--- NOTE | 2024-08-22 17:30 | DVHOP ---
DATE OF SURGERY: 08/22/2024 PREOPERATIVE DIAGNOSIS: Appendicitis. POSTOPERATIVE DIAGNOSIS: Appendicitis. SURGEON: Pacheco Gonzalez MD ANESTHESIA: General endotracheal. ANESTHESIOLOGIST: Dr. Crowell. PROCEDURE: Laparoscopy, laparoscopic appendectomy. DESCRIPTION OF PROCEDURE: Under general endotracheal anesthesia, with the patient's skin prepped and draped, a supraumbilical incision was made and Veress needle inserted by the hanging drop technique to establish pneumoperitoneum to 15 mmHg pressure by insufflation with carbon dioxide. With the abdomen fully distended, the needle was removed and replaced with a 5 mm trocar port through which a 0-degree viewing laparoscope was inserted and under direct vision, additional 5 and 10 mm ports inserted through the midline abdominal wall. Laparoscopy was performed and revealed no obvious unexpected pathology. The appendix was acutely inflamed and was convoluted and surrounded by omental adhesions. Adhesions were lysed. The appendix was fully mobilized and traced to its confluence with the cecum at its base, it was crossclamped and divided using the Endo-DENI stapler with vascular leti. The mobilized appendix with mesoappendix was removed from the peritoneal cavity. The right lower quadrant was profusely irrigated, irrigant was aspirated. Hemostasis was meticulously inspected and found to be complete. At the termination of procedure, there was no evidence of bleeding from either the appendicectomy site or from the port sites. Instrumentation was withdrawn. Pneumoperitoneum was evacuated. Fascial defect closed using 0 Vicryl. Wounds approximated using metallic skin leti. The patient remained stable throughout the procedure, left the operating room following an accurate needle and sponge count . Pacheco Gonzalez MD PF TID: [id number] RECEIPT: [id number]
[2024-08-22] MEDS: ONDANSETRON HCL 4 MG/2 ML VIAL IV PRN (20:22)
[2024-08-22] MEDS: VENLAFAXINE HCL 37.5mg XR cap PO SCH (21:44)
[2024-08-23] VITALS (7 sets, daily range): BP systolic 94–118; BP diastolic 51–80; PULSE 67–123; RESP 16–18; TEMP 98.4–98.8; O2SAT 97–100
[2024-08-23] MEDS: METOCLOPRAMIDE HCL 5MG/ml INJ 2ml VIAL IV PRN (04:54)
[2024-08-23] MEDS: SODIUM CHLORIDE 0.9% 1,550 ML IV ONE (04:54)
[2024-08-23 06:19] LABS: Basophils # (auto) 0 10 ^3/uL (0-0.2); Basophils % (auto) 0.3 % (0.0-2.0); Eosinophils # (auto) 0 10 ^3/uL (0-0.8); Eosinophils % (auto) 0.1 % (0.0-7.0); Hematocrit 36.2 % (36.0-46.0); Hemoglobin 12.2 g/dL (12.2-16.2); Lymphocytes # (auto) 1.9 10 ^3/uL (0.4-5.4); Lymphocytes % (auto) 14.8 % (10.0-50.0); Mean Corpuscular Hemoglobin 29.5 pg (28.0-32.0); Mean Corpuscular Hgb Conc. 33.7 g/dL (32.0-36.0); Mean Corpuscular Volume 87.6 fL (80.0-100.0); Monocytes # (auto) 1.4 10 ^3/uL (0-1.3); Monocytes % (auto) 10.6 % (0.0-12.0); Neutrophils # (auto) 9.5 10 ^3/uL (1.6-8.6); Neutrophils % (auto) 74.2 % (37.0-80.0); Platelet Count (auto) 296 10^3/uL (140-450); Red Blood Cells 4.12 10^6/uL (4.0-5.20); Red Cell Distribution Width 12.5 % (11.8-14.3); White Blood Cell 12.8 10^3/uL (4.4-10.8)
[2024-08-23 06:35] LABS: Albumin 3.8 g/dL (3.2-4.8); Alkaline Phosphatase 63 U/L (46-116); Anion Gap 7 (5-15); Aspartate Aminotransferase 15 U/L (13-40); Bilirubin, Total 0.5 mg/dL (0.2-1.0); Calcium 8.9 mg/dL (8.7-10.4); Carbon Dioxide 23 mmol/L (20-31); Chloride 108 mmol/L (98-107); Glucose 121 mg/dL (74-106); Potassium 3.9 mmol/L (3.5-5.1); Sodium 138 mmol/L (136-145); Total Protein 6.3 g/dL (5.7-8.2)
[2024-08-23 06:38] LABS: Alanine Aminotransferase < 9 U/L (7-40); BUN/Creatinine Ratio 7.7 (10.0-20.0); Blood Urea Nitrogen < 5 mg/dL (9-23)
--- NOTE | 2024-08-23 10:37 | DVHPN2 ---
Reviewed: Care Plan, H&P, Labs, Medications, Previous Orders, Radiology, Other (Consultation) Changes from previous H/P or p: No Changes Objective Vitals Vital Signs Date Time Temp Pulse Resp B/P (MAP) Pulse Ox O2 Delivery O2 Flow Rate FiO2 08/23/24 08:38 98.7 123 16 113/71 (85) 99 98.7 08/22/24 20:00 Room Air* 0 21 Intake/Output Intake and Output 08/23/24 07:00 Intake Total 3615 ml Output Total 500 ml Balance 3115 ml Intake Oral 1080 ml IV Total 2535 ml Output Urine Total 500 ml # Voids 1 General Appearance: Alert, Oriented X3, Cooperative, No acute distress, Other (Cachectic) HEENT: Atraumatic Lungs: Clear to auscultation, Normal air movement Cardiovascular: Regular rate, Normal S1, Normal S2, No murmurs Abdomen: Soft, Other (Clean surgical wounds dressing; hoypoactive bowel sounds; mild tenderness) Extremities: No edema Neuro: Normal speech, Cranial nerves 3-12 NL Psych/Mental Status: Mental status NL, Mood NL Medications Current Medications Medications Dose Ordered Sig/Emilio Route Start Time Stop Time Status Last Admin Dose Admin Ondansetron HCl 4 mg Q4HP PRN IV 08/21/24 13:15 08/23/24 01:34 4 MG Morphine Sulfate 2 mg Q4HPRN PRN IV 08/21/24 13:15 Piperacillin Sod/ Tazobactam Sod 100 ml @ 25 mls/hr Q8HR IV 08/21/24 22:00 08/23/24 06:08 25 MLS/HR Potassium Chloride/Dextrose/ Sod Cl 1,000 ml @ 100 mls/hr Q10H IV 08/21/24 15:00 08/22/24 21:06 100 MLS/HR Acetaminophen/ Hydrocodone Bitart 1 tab Q4HP PRN PO 08/22/24 14:30 08/22/24 14:47 1 TAB Venlafaxine HCl 150 mg HS PO 08/22/24 22:00 08/22/24 21:44 150 MG Metoclopramide HCl 10 mg Q6HPRN PRN IV 08/23/24 04:45 08/23/24 04:54 10 MG Laboratory Results Laboratory Tests 08/23/24 05:27 Chemistry Test 08/23/24 05:27 Albumin 3.8 g/dL (3.2-4.8) Calcium Level 8.9 mg/dL (8.7-10.4) Total Protein 6.3 g/dL (5.7-8.2) LFT Test 08/23/24 05:27 Alanine Aminotransferase (ALT) < 9 U/L (7-40) Alkaline Phosphatase 63 U/L (46-116) Aspartate Amino Transferase (AST) 15 U/L (13-40) Total Bilirubin 0.5 mg/dL (0.2-1.0) Labs and/or images reviewed: Labs reviewed by me, Image(s) reviewed by me Assessment/Plan Assessment/Plan #Abdominal pain due to acute appendicitis #Sepsis due to acute appendicitis # acute hypotension due to sepsis #Leukocytosis due to sepsis #Acute appendicitis status post laparoscopic appendectomy August 22, [address] Gonzalez, continue Zosyn Advance Diet as tolerated Plan discussed with: Patient Date of Service: Aug 23, 2024 Billing Provider: ANMRATA LAST MD Common Visit Codes: [id number] INP/OBS CARE(HIGH) NAMRATA LAST MD Aug 23, 2024 10:37
--- NOTE | 2024-08-23 11:45 | DVHPN2 ---
Progress Note Date Seen: Aug 23, 2024 Medical Necessity Reason Pt with a Central, PICC or Fol: No Subjective Patient reports: No new complaints, Feels better Review of Systems: HEENT:Normal, CVS:Normal, RESPIRATORY:Normal, GI:Abnormal (nausea) Objective vital signs Vital Sign Date Time Temp Pulse Resp B/P (MAP) Pulse Ox O2 Delivery O2 Flow Rate FiO2 08/23/24 08:38 98.7 123 16 113/71 (85) 99 98.7 08/22/24 20:00 Room Air* 0 21 Total Intake and Output 08/22/24 08/22/24 08/23/24 15:00 23:00 07:00 Intake Total 285 ml 560 ml 2770 ml Output Total 500 ml Balance 285 ml 60 ml 2770 ml medications Current Medications Medications Dose Ordered Sig/Emilio Route Start Time Stop Time Status Last Admin Dose Admin Ondansetron HCl 4 mg Q4HP PRN IV 08/21/24 13:15 08/23/24 01:34 4 MG Morphine Sulfate 2 mg Q4HPRN PRN IV 08/21/24 13:15 Piperacillin Sod/ Tazobactam Sod 100 ml @ 25 mls/hr Q8HR IV 08/21/24 22:00 08/23/24 06:08 25 MLS/HR Potassium Chloride/Dextrose/ Sod Cl 1,000 ml @ 100 mls/hr Q10H IV 08/21/24 15:00 08/22/24 21:06 100 MLS/HR Acetaminophen/ Hydrocodone Bitart 1 tab Q4HP PRN PO 08/22/24 14:30 08/22/24 14:47 1 TAB Venlafaxine HCl 150 mg HS PO 08/22/24 22:00 08/22/24 21:44 150 MG Metoclopramide HCl 10 mg Q6HPRN PRN IV 08/23/24 04:45 08/23/24 04:54 10 MG Examination: GENERAL:Normal, HEENT:Normal, NECK:Normal, LUNGS:Normal, CVS:Normal, ABDOMEN:Normal, MSK:Normal, SKIN:Normal laboratory and microbiology Laboratory Tests 08/23/24 05:27 Test 08/23/24 05:27 Range/Units Serum Glucose 121 H 74-106 mg/dL Problem List/Assessment/Plan Problem List/Assessment/Plan 11/9/24 patient complains of nausea , however states has improved since last night, abdomen soft, non distended, appropriately tender, tolerating diet, patient advised to ambulate, patient ok to discharge in 24 hours, please send home with antibiotics and patient to follow up in clinic in 10-14 days after discharge Plan discussed with: Patient, Other (Dr. Gonzalez ) JESUS MANUEL TAFOYA NP Aug 23, 2024 11:45
[2024-08-24 01:00] VITALS: BP 102/56; PULSE 75; RESP 16; TEMP 98.8; O2SAT 98
[2024-08-24 05:00] VITALS: BP 104/58; PULSE 70; RESP 16; TEMP 98; O2SAT 100
[2024-08-24 08:56] VITALS: BP 110/69; PULSE 103; RESP 16; TEMP 97.9; O2SAT 100
[2024-08-24] MEDS ORDERED: LEVO500T91 PO (12:16)
[2024-08-24] MEDS ORDERED: HYDR-4902 PO (12:16)
[2024-08-24] MEDS ORDERED: METR-344 PO (12:16)
[2024-08-24] MEDS ORDERED: ZOFR4T PO (12:16)
--- NOTE | 2024-08-24 12:22 | DVHDS2 ---
Discharge Summary Date of Admission Aug 21, 2024 at 13:07 Date of Discharge: Aug 24, 2024 Admitting Diagnosis Acute appendicitis Wounds: Laparoscopic appendectomy Labs/Diagnostic Data: Laboratory Results Test 08/23/24 05:27 08/21/24 18:18 08/21/24 09:33 White Blood Count 12.8 10^3/uL (4.4-10.8) Red Blood Count 4.12 10^6/uL (4.0-5.20) Hemoglobin 12.2 g/dL (12.2-16.2) Hematocrit 36.2 % (36.0-46.0) Mean Corpuscular Volume 87.6 fL (80.0-100.0) Mean Corpuscular Hemoglobin 29.5 pg (28.0-32.0) Mean Corpuscular Hemoglobin Concent 33.7 g/dL (32.0-36.0) Red Cell Distribution Width 12.5 % (11.8-14.3) Platelet Count 296 10^3/uL (140-450) Mean Platelet Volume 6.9 fL (6.9-10.8) Neutrophils (%) (Auto) 74.2 % (37.0-80.0) Lymphocytes (%) (Auto) 14.8 % (10.0-50.0) Monocytes (%) (Auto) 10.6 % (0.0-12.0) Eosinophils (%) (Auto) 0.1 % (0.0-7.0) Basophils (%) (Auto) 0.3 % (0.0-2.0) Neutrophils # (Auto) 9.5 10 ^3/uL (1.6-8.6) Lymphocytes # (Auto) 1.9 10 ^3/uL (0.4-5.4) Monocytes # (Auto) 1.4 10 ^3/uL (0-1.3) Eosinophils # (Auto) 0 10 ^3/uL (0-0.8) Basophils # (Auto) 0 10 ^3/uL (0-0.2) Nucleated Red Blood Cells 0.0 % Sodium Level 138 mmol/L (136-145) Potassium Level 3.9 mmol/L (3.5-5.1) Chloride Level 108 mmol/L (98-107) Carbon Dioxide Level 23 mmol/L (20-31) Anion Gap 7 (5-15) Blood Urea Nitrogen < 5 mg/dL (9-23) Creatinine 0.65 mg/dL (0.550-1.02) Glomerular Filtration Rate Calc 128 mL/min (>90) BUN/Creatinine Ratio 7.7 (10.0-20.0) Serum Glucose 121 mg/dL (74-106) Calcium Level 8.9 mg/dL (8.7-10.4) Total Bilirubin 0.5 mg/dL (0.2-1.0) Aspartate Amino Transferase (AST) 15 U/L (13-40) Alanine Aminotransferase (ALT) < 9 U/L (7-40) Alkaline Phosphatase 63 U/L (46-116) Total Protein 6.3 g/dL (5.7-8.2) Albumin 3.8 g/dL (3.2-4.8) Prothrombin Time 11.7 sec (9.3-11.8) Prothrombin Time INR 1.11 (0.9-1.15) Activated Partial Thromboplast Time 29.4 SEC (24.5-34.5) Beta HCG, Quantitative 0.2 mIU/mL (1.5-4.2) Other Laboratory Tests 08/23/24 05:27 Brief Hx & Hospital Course: 19-year-old female admitted for acute appendicitis and underwent laparoscopic appendectomy by Dr. Gonzalez. IV antibiotics pain medication IV fluids. Postop course uneventful at the time of discharge patient is tolerating regular diet afebrile vital signs are stable cleared for discharge by surgeon. Prescription for Levaquin Flagyl [place] and Zofran transmitted to the pharmacy. She will follow up with the surgeon in 10 days Consults/Reason for consult Surgeon Operations or Procedures Laparoscopic appendectomy Condition at Discharge: Fair Final Diagnosis/Problems List #Abdominal pain due to acute appendicitis #Sepsis due to acute appendicitis # acute hypotension due to sepsis #Leukocytosis due to sepsis #Acute appendicitis status post laparoscopic appendectomy August 22, [address] Gonzalez, continue Zosy Discharge Disposition: Home Discharge Instruct/Medications Diet: Regular Activity: Light activity Follow Up/Referral: Follow up with surgeon Dr. Gonzalez in 10 days Medications: Levaquin Flagyl [place] Zofran Transmitted to [facility] (Time taken for discharge summary 39 minutes) Discharge Statement: "Patient was advised to return to the ER or call 911 if any headaches, dizziness, shortness of breath, chest pain, abdominal pain, bleeding, fevers, or worsening of medical condition. Patient was counseled about treatment plan, medications, possible side effects, patientverbalized understanding. All questions were answered to the best of my ability. This discharge took greater then 30 minutes in planning, reviewing documentation, counseling the patient, and discussing with other team members." ASSESSMENT ASSESSMENT Hospital Course Uneventful Assessment #Abdominal pain due to acute appendicitis #Sepsis due to acute appendicitis # acute hypotension due to sepsis #Leukocytosis due to sepsis #Acute appendicitis status post laparoscopic appendectomy August 22, [address] Gonzalez, continue Zosy Date of Service: Aug 24, 2024 Billing Provider: NAMRATA LAST MD Common Visit Codes: [id number] DISCH DAY >30min NAMRATA LAST MD Aug 24, 2024 12:22
[2024-08-24 12:46] VITALS: BP 104/61; PULSE 88; RESP 16; TEMP 98; O2SAT 99
[2024-08-24 13:19] VITALS: BP 110/69; PULSE 103; RESP 16; TEMP 97.9; O2SAT 100
== END 2024-08-24 14:20 | disposition home or self-care (01) | DRG 710 ==
LOC: ER 09:15 → OVERFLOW 13:07 → WEST WING 16:16
PROVIDERS: ADMIT Registered Nurse General Practice; ATTEND Internal Medicine
PROC: 0DTJ4ZZ Resection of Appendix, Percutaneous Endoscopic Approach (ICD-10-PCS; principal; 2024-08-22 10:42)
DX: A41.9 Sepsis, unspecified organism (principal); R64 Cachexia; E44.0 Moderate protein-calorie malnutrition; R71.0 Precipitous drop in hematocrit; K35.80 Unspecified acute appendicitis; F41.9 Anxiety disorder, unspecified; F32.A Depression, unspecified; K66.0 Peritoneal adhesions (postprocedural) (postinfection); Z68.1 Body mass index [BMI] 19.9 or less, adult
CPT/HCPCS: 36415; 74176; 74177; 80048; 80053; 84702; 85025; 85610; 85730; 86850; 86900; 86901; 96365; 96375; 99291; G0378; J1100; J1885; J2250; J2405; J2543; J2704; J3490

== ENCOUNTER → 2024-09-01 | Outpatient (CLI) | payer MEDICAID ==
[~2024-09-01] MED LIST changes: +LEVO500T91 PO; +METR-344 PO; +TRAZ1TAB12 PO; +VENL150C3 PO
[2024-09-01 10:38] LABS: Basophils # (auto) 0.1 10 ^3/uL (0-0.2); Basophils % (auto) 1.2 % (0.0-2.0); Eosinophils # (auto) 0.2 10 ^3/uL (0-0.8); Eosinophils % (auto) 2.8 % (0.0-7.0); Hematocrit 40.2 % (36.0-46.0); Hemoglobin 13.8 g/dL (12.2-16.2); Lymphocytes % (auto) 29.7 % (10.0-50.0); Mean Corpuscular Hemoglobin 30.2 pg (28.0-32.0); Mean Corpuscular Hgb Conc. 34.3 g/dL (32.0-36.0); Monocytes # (auto) 0.8 10 ^3/uL (0-1.3); Monocytes % (auto) 11.2 % (0.0-12.0); Neutrophils # (auto) 3.8 10 ^3/uL (1.6-8.6); Neutrophils % (auto) 55.1 % (37.0-80.0); Platelet Count (auto) 341 10^3/uL (140-450); Red Blood Cells 4.57 10^6/uL (4.0-5.20); White Blood Cell 6.9 10^3/uL (4.4-10.8)
[2024-09-01 11:03] LABS: Alanine Aminotransferase 14 U/L (7-40); Albumin 4.3 g/dL (3.2-4.8); Alkaline Phosphatase 62 U/L (46-116); Anion Gap 7 (5-15); Aspartate Aminotransferase 19 U/L (13-40); BUN/Creatinine Ratio 12.3 (10.0-20.0); Bilirubin, Total 0.4 mg/dL (0.2-1.0); Blood Urea Nitrogen 9 mg/dL (9-23); Calcium 9.7 mg/dL (8.7-10.4); Carbon Dioxide 26 mmol/L (20-31); Chloride 108 mmol/L (98-107); Glucose 91 mg/dL (74-106); Sodium 141 mmol/L (136-145); Total Protein 7.4 g/dL (5.7-8.2)
== END | disposition home or self-care (01) ==
LOC: LAB 10:21
PROVIDERS: ATTEND Internal Medicine
DX: K35.30 Acute appendicitis with localized peritonitis, without perforation or gangrene (principal); Z90.49 Acquired absence of other specified parts of digestive tract
CPT/HCPCS: 36415; 80053; 85025

== ENCOUNTER 2025-01-31 18:26 | Emergency (ER) | payer MEDICAID ==
[~2025-01-31] VITALS: Ht 160 cm; Wt 52.0 kg
--- NOTE | 2025-01-31 18:35 | ECG ---
[facility] Test Date: 2025-01-31 Test Time: 18:33:54 Pat Name: RONALD MCALLISTER Department: ER Room: Gender: F Dealer Account Manager: ANDRZEJ : 2005 Requested By: ZEUS GRIFFIN Order Number: [id number] Reading MD: Measurements Intervals Comfort Rate: 105 P: 61 CO: 145 QRS: 257 QRSD: 79 T: 37 QT: 338 QTc: 447 Interpretive Statements Sinus tachycardia Left anterior fascicular block Low voltage, precordial leads RSR' in V1 or V2, right VCD or RVH Please click the below link to view image of tracing.
--- NOTE | 2025-01-31 18:55 | ED.PDOC ---
HPI Comments 19 year old female came to ER due to chest pains. Patient denies any medical problems. States she was having left upper quadrant abdominal pain yesterday, radiating towards her right chest wall. Tender to touch, and worsens with movements. Denies any cough, nausea or vomiting. Denies any trauma or heavy lifting. Chief Complaint: Chest Pain Time Seen by MD: 18:53 Primary Care Provider: JONATHON Reviewed Notes: Nurses Notes Allergies: Coded Allergies: Iohexol (Verified Allergy, Severe, 08/21/24) Tachycardia Home Meds Active Scripts Ondansetron Odt 4MG Tab (ZOFRAN PO) 4 Mg Tb, 4 MG PO QID PRN, #30 TAB ODT TAB-DISSOLVE IN MOUTH, THEN SWALLOW Prov:NAMRATA LAST MD 08/24/24 Hydrocodone-Acetaminophen (Hydrocodone Bitartrate/AC 5-325 mg) 1 Tab Tab, 1 TAB PO QID PRN, #30 TAB Prov:NAMRATA LAST MD 08/24/24 Metronidazole (Flagyl) 500 Mg Tab, 1 TAB PO TID, #30 TAB Prov:NAMRATA LAST MD 08/24/24 Levofloxacin Hemihydrate (LEVAQUIN 500 MG) 500 Mg Tab, 1 TAB PO DAILY, #10 TAB Prov:NAMRATA LAST MD 08/24/24 Hydrocodone-Acetaminophen (Hydrocodone Bitartrate/AC 5-325 mg) 1 Tab Tab, 1 TAB PO Q6HR, #8 TAB As needed for pain Prov:FLACO HERNANDES REAL ESTATE ASSOCIATE ATTORNEY 06/11/23 Ondansetron Odt 4MG Tab (ZOFRAN PO) 4 Mg Tb, 1 TAB PO Q8HR, #20 TAB ODT TAB-DISSOLVE IN MOUTH, THEN SWALLOW as needed for nausea vomiting Prov:FLACO HERNANDES REAL ESTATE ASSOCIATE ATTORNEY 06/11/23 Nitrofurantoin Monohydrate Mac (Macrobid) 100 Mg Cap, 1 TAB PO BID for 10 Days, #20 CAP Prov:FLACO HERNANDES REAL ESTATE ASSOCIATE ATTORNEY 06/11/23 Reported Medications Venlafaxine Hydrochloride (Effexor Xr) 150 Mg Cap, 1 CAP PO DAILY, CAP 1 Refill 08/21/24 Trazodone Hcl (Trazodone Hcl) 150 Mg Tab, 50 MG PO DAILY, MG 08/21/24 Information Source: Patient Mode of Arrival: Ambulatory Severity: Moderate Timing: Minutes Duration: Since onset Prehospital treatment: None Location: Chest (R) Radiation: Abdomen Quality: Sharp Onset: With Light Exertion Cardiac Risk Factors: None PE Risk Factors: None History of: None Modifying Factors: Nothing Associated Signs and Symptoms: Abdominal Pain Past Medical History PAST MEDICAL HISTORY: Denies Surgical History: Denies all surgeries POST OFFICE MANAGER History: Denies all POST OFFICE MANAGER Hx Family History Family History: Reviewed,noncontributory to illness Social History Smoker: Non-Smoker Alcohol: Denies ETOH Use Drugs: Denies Drug Use Lives In: Home Constitutional: denies: chills, diaphoresis, fatigue, fever, malaise, sweats, weakness, others EENTM: denies: blurred vision, double vision, ear bleeding, ear discharge, ear drainage, ear pain, ear ringing, eye pain, eye redness, hearing loss, mouth pain, mouth swelling, nasal discharge, nose bleeding, nose congestion, nose pain, photophobia, tearing, throat pain, throat swelling, voice changes, others Respiratory: denies: cough, hemoptysis, orthopnea, SOB at rest, shortness of breath, SOB with excertion, stridor, wheezing, others Cardiovascular: reports: chest pain; denies: dizzy spells, diaphoresis, Dyspnea on exertion, edema, irregular heart beat, left arm pain, lightheadedness, palpitations, PND, syncope, others Gastrointestinal: reports: abdominal pain; denies: abdomen distended, blood streaked bowels, constipated, diarrhea, dysphagia, difficulty swallowing, hematemesis, melena, nausea, poor appetite, poor fluid intake, rectal bleeding, rectal pain, vomiting, others Genitourinary: denies: abnormal vagina bleeding, burning, dyspareunia, dysuria, flank pain, frequency, hematuria, incontinence, pain, , vagina discharge, urgency, others Neurological: denies: dizziness, fainting, headache, left sided numbness, left sided weakness, numbness, paresthesia, pre-existing deficit, right sided numbness, right sided weakness, seizure, speech problems, tingling, tremors, weakness, others Musculoskeletal: denies: back pain, gout, joint pain, joint swelling, muscle pain, muscle stiffness, neck pain, others Integumetry: denies: bruises, change in color, change in hair/nails, dryness, laceration, lesions, lumps, rash, wounds, others Allergic/Immunocompromised: denies: Difficulty Healing, Frequent Infections, Hives, Itching, others Hematologic/Lymphatic: denies: anemia, blood clots, easy bleeding, easy bruising, swollen glands, others Endocrine: denies: excessive hunger, excessive sweating, excessive thirst, excessive urination, flushing, intolerance to cold, intolerance to heat, unexplained weight gain, unexplained weight loss, others Psychiatric: denies: anxiety, bipolar disorder, depression, hopeless, panic disorder, schizophrenia, sleepless, suicidal, others Physical Exam General Appearance: No Apparent Distress, Normal HEENT: Normal ENT Inspection, Pharynx Normal, TMs Normal Neck: Full Range of Motion, Non-Tender, Normal, Normal Inspection Respiratory: Chest Non-Tender, Lungs Clear, No Accessory Muscle Use, No Respiratory Distress, Normal Breath Sounds Cardiovascular: No Edema, No JVD, No Murmur, No Gallop, Normal Peripheral Pulses, Regular Rate/Rhythm Breast Exam: Deferred Gastrointestinal: No Organomegaly, Non Tender, No Pulsatile Mass, Normal Bowel Sounds, Soft Genitalia: Deferred Pelvic: Deferred Rectal: Deferred Extremities: No calf tenderness, Normal capillary refill, Normal inspection, Normal range of motion, Non-tender, No pedal edema Musculoskeletal : Apperance: Normal Neurologic: Alert, licensed social worker II-XII nml as Tested, No Motor Deficits, Normal Affect, Normal Mood, No Sensory Deficits Cerebellar Function: Normal Reflexes: Normal Skin: Dry, Normal Color, Warm Lymphatic: No Adenopathy EKG EKG : Pulse Rate (adult): 105 Cardiac Rhythm: ST Comments left anterior fascicular block Was a procedure done? Was a procedure done?: No CP Differential Dx Differential Diagnosis: Angina, Anxiety / Panic Attack Differential Diagnosis: Angina, Chest Wall Pain, Costochondritis, Esophageal reflux/spasm, Gastritis, Myocardial Infarction X-Ray, Labs, Meds, VS Vital Signs Date Time Temp Pulse Resp B/P (MAP) Pulse Ox O2 Delivery O2 Flow Rate FiO2 01/31/25 19:57 98.7 95 18 142/70 (94) 97 98.7 01/31/25 19:57 95 18 97 Room Air 01/31/25 19:34 95 01/31/25 18:55 105 01/31/25 18:33 105 01/31/25 18:30 99.0 105 16 126/88 (101) 98 99.0 Lab Test 01/31/25 20:22 01/31/25 19:19 Range/Units Troponin I High Sensitivity < 3 L < 3 L </=34 ng/L White Blood Count 8.6 4.4-10.8 10^3/uL Red Blood Count 4.72 4.0-5.20 10^6/uL Hemoglobin 14.0 12.2-16.2 g/dL Hematocrit 41.6 36.0-46.0 % Mean Corpuscular Volume 88.0 80.0-100.0 fL Mean Corpuscular Hemoglobin 29.6 28.0-32.0 pg Mean Corpuscular Hemoglobin Concent 33.6 32.0-36.0 g/dL Red Cell Distribution Width 12.7 11.8-14.3 % Platelet Count 393 140-450 10^3/uL Mean Platelet Volume 6.5 L 6.9-10.8 fL Neutrophils (%) (Auto) 51.0 37.0-80.0 % Lymphocytes (%) (Auto) 37.3 10.0-50.0 % Monocytes (%) (Auto) 7.6 0.0-12.0 % Eosinophils (%) (Auto) 2.2 0.0-7.0 % Basophils (%) (Auto) 1.9 0.0-2.0 % Neutrophils # (Auto) 4.4 1.6-8.6 10 ^3/uL Lymphocytes # (Auto) 3.2 0.4-5.4 10 ^3/uL Monocytes # (Auto) 0.7 0-1.3 10 ^3/uL Eosinophils # (Auto) 0.2 0-0.8 10 ^3/uL Basophils # (Auto) 0.2 0-0.2 10 ^3/uL Nucleated Red Blood Cells 0.0 % Sodium Level 139 136-145 mmol/L Potassium Level 4.0 3.5-5.1 mmol/L Chloride Level 104 98-107 mmol/L Carbon Dioxide Level 27 20-31 mmol/L Anion Gap 8 5-15 Blood Urea Nitrogen 10 9-23 mg/dL Creatinine 0.72 0.550-1.02 mg/dL Glomerular Filtration Rate Calc 122 >90 mL/min BUN/Creatinine Ratio 13.9 10.0-20.0 Serum Glucose 85 74-106 mg/dL Calcium Level 9.7 8.7-10.4 mg/dL Current Medications Medications (Trade) Dose Ordered Sig/Emilio Route Start Time Stop Time Status Last Admin Famotidine (Pepcid Tablet) 20 mg ONCE ONCE PO 01/31/25 18:45 01/31/25 18:46 DC 01/31/25 19:53 Ondansetron HCl (Zofran Po) 4 mg ONCE ONCE PO 01/31/25 18:45 01/31/25 18:46 DC 01/31/25 19:53 Al Hydrox/Mg Hydrox/Simethicone (Maalox Plus) 15 ml ONCE ONCE PO 01/31/25 18:45 01/31/25 18:46 DC 01/31/25 19:53 CHEST RADIOGRAPH Indication: chest pain Technique: Single frontal view of the chest was obtained Comparison: None FINDINGS: Lines and Tubes: None Lungs: No focal consolidation. Pleura: No effusion. No pneumothorax. Cardiomediastinal contours: Unremarkable Bones: No acute osseous abnormality. IMPRESSION: 1. No acute cardiopulmonary disease. Time of 1ST Reevaluation: 18:47 Reevaluation 1ST: Unchanged Patient Education/Counseling: Diagnosis, Treatment Family Education/Counseling: Need For Follow Up Departure 1 Departure Time of Disposition: 21:17 (Patient presented with chest pain that was concerning for possible STEMI, ACS, PE, Pneumonia, Muscle Strain, COPD, Dissection. Data: 1. I ordered and reviewed the result of at least 3 labs including a CBC, BMP, and Troponin. 2. I independently interpreted the following tests: EKG which shows normal sinus rhythm and Chest X-ray which shows a benign chest.Risk:This patient presented with a high risk of morbidity due to further diagnostic testing or treatment and may suffer from an acute cardiac or respiratory disorder. After review of all the data patient is unlikely to have a pe , dissection, and is low risk for acs. Patient is stable at this time.Workup so far is benign and patient will be discharged with outpatient followup. ) Impression: Primary Impression: Acute chest pain Disposition: 01 HOME / SELF CARE / HOMELESS Condition: Stable Additional Instructions: You presented today with chest pain. Your workup today was benign including labs, troponin, EKG, chest x-ray. Your pain may be from musculoskeletal strain, acid reflux, anxiety, or many other factors. It is important to follow up with your regular doctor within 1 week. If your symptoms worsen or you have any other concerns please return to the emergency room. Discharged With: Self Critical Care Note Critical Care Time?: No Stability Stability form required: No Heart Score Heart Score: Heart Score Response (Comments) Value History Slightly Suspicious 0 EKG Repolarization Disturb 1 Age <45 0 Risk Factors No known risk factors 0 Troponin Normal limit 0 Total 1 I personally scribed for ZEUS GRIFFIN MD ([employer]) on 01/31/25 at 18:55. Electronically submitted by Tereso Toribio ([email or web address]). I personally scribed for ZEUS GIRFFIN MD ([email or web address]) on 01/31/25 at 19:26. Electronically submitted by Tereso Toribio ([email or web address]). ZEUS GRIFFIN MD Jan 31, 2025 18:55
--- NOTE | 2025-01-31 19:22 | DVH ---
CHEST RADIOGRAPH Indication: chest pain Technique: Single frontal view of the chest was obtained Comparison: None FINDINGS: Lines and Tubes: None Lungs: No focal consolidation. Pleura: No effusion. No pneumothorax. Cardiomediastinal contours: Unremarkable Bones: No acute osseous abnormality. IMPRESSION: 1. No acute cardiopulmonary disease.
[2025-01-31] MEDS: FAMOTIDINE 20 MG TAB PO ONE (19:53)
[2025-01-31] MEDS: MAALOX PLUS or MAALOX 30 ML PO ONE (19:53)
[2025-01-31] MEDS: ONDANSETRON ODT 4 MG TAB PO ONE (19:53)
[2025-01-31 19:58] LABS: Basophils # (auto) 0.2 10 ^3/uL (0-0.2); Basophils % (auto) 1.9 % (0.0-2.0); Eosinophils # (auto) 0.2 10 ^3/uL (0-0.8); Eosinophils % (auto) 2.2 % (0.0-7.0); Hematocrit 41.6 % (36.0-46.0); Lymphocytes # (auto) 3.2 10 ^3/uL (0.4-5.4); Lymphocytes % (auto) 37.3 % (10.0-50.0); Mean Corpuscular Hemoglobin 29.6 pg (28.0-32.0); Mean Corpuscular Hgb Conc. 33.6 g/dL (32.0-36.0); Monocytes # (auto) 0.7 10 ^3/uL (0-1.3); Monocytes % (auto) 7.6 % (0.0-12.0); Neutrophils # (auto) 4.4 10 ^3/uL (1.6-8.6); Platelet Count (auto) 393 10^3/uL (140-450); Red Blood Cells 4.72 10^6/uL (4.0-5.20); Red Cell Distribution Width 12.7 % (11.8-14.3); White Blood Cell 8.6 10^3/uL (4.4-10.8)
[2025-01-31 20:03] LABS: Chloride 104 mmol/L (98-107); Sodium 139 mmol/L (136-145)
[2025-01-31 20:04] LABS: Anion Gap 8 (5-15); Calcium 9.7 mg/dL (8.7-10.4); Carbon Dioxide 27 mmol/L (20-31)
[2025-01-31 20:09] LABS: BUN/Creatinine Ratio 13.9 (10.0-20.0); Blood Urea Nitrogen 10 mg/dL (9-23); Glucose 85 mg/dL (74-106)
[2025-01-31 21:51] VITALS: BP 116/89; PULSE 80; RESP 16; TEMP 98.1; O2SAT 98
--- NOTE | 2025-02-01 04:23 | ECG ---
[facility] Test Date: 2025-01-31 Test Time: 19:34:18 Pat Name: RONALD MCALLISTER Department: ED Room: Gender: F Multifocal Lens Inspector: KIERSTEN : 2005 Requested By: ZEUS GRIFFIN Order Number: [id number] Reading MD: Measurements Intervals [place] Rate: 95 P: 66 AK: 141 QRS: 250 QRSD: 84 T: 55 QT: 353 QTc: 444 Interpretive Statements Sinus rhythm Probable left atrial enlargement Left anterior fascicular block Low voltage, precordial leads RSR' in V1 or V2, right VCD or RVH Please click the below link to view image of tracing.
== END 2025-01-31 21:58 | disposition home or self-care (01) ==
LOC: ER 18:26
DX: R07.89 Other chest pain (principal); R10.12 Left upper quadrant pain; Z88.8 Allergy status to other drugs, medicaments and biological substances
CPT/HCPCS: 36415; 71045; 80048; 84484; 85025; 93005; 99285; Q0162